=== PATIENT | male | born 1975 | race Caucasian/White ===

== ENCOUNTER 2018-05-29 00:02 | Emergency (ER) | payer OTHER ==
[2018-05-29 00:13] VITALS: BP 142/90; RESP 18; TEMP 98.1
--- NOTE | 2018-05-29 02:03 | ED PDOC ---
HPI: Chest Pain Time Seen by Provider: 05/29/18 00:57 Chief Complaint (Nursing): Chest Pain Chief Complaint (Provider): Chest Pain History Per: Patient History/Exam Limitations: no limitations Onset/Duration Of Symptoms: Days (x1) Current Symptoms Are (Timing): Still Present Pain Scale Rating Of: 7 Quality: "Pain" Associated Symptoms: denies: Nausea, Diaphoresis, Other (vommiting ) Additional History Per: Patient Additional Complaint(s): 43 y/o male presents to the ED with chest pain onset one day ago. Patient saw his PMD for a routine check up. His EKG was abnormal and he was told that he should have an echo done. Patient is accustomed to chest pain episodes from 2-4 times a week due to stress. One episode occurred this evening that was worse than his usual episodes, prompting ED visit. The pain was alleviated by meditation for a short time, but then it returned. Otherwise, patient denies nausea, vomiting, and diaphoresis. PMD: Xu Marcos Past Medical History Reviewed: Historical Data, Nursing Documentation, Vital Signs Vital Signs: Last Vital Signs Temp 98.1 F 05/29/18 00:10 Pulse 108 H 05/29/18 00:10 Resp 18 05/29/18 00:10 BP 142/90 05/29/18 00:10 Pulse Ox 100 05/29/18 00:10 MORAIMA Report Viewed: Yes - Medical History PMH: No Chronic Diseases - Surgical History Surgical History: No Surg Hx - Family History Family History: States: Unknown Family Hx - Social History Current smoker - smoking cessation education provided: No Alcohol: None Drugs: Denies - Allergies Allergies/Adverse Reactions: Allergies Allergy/AdvReac Type Severity Reaction Status Date / Time No Known Allergies Allergy Verified 05/29/18 00:14 Review of Systems ROS Statement: Except As Marked, All Systems Reviewed And Found Negative Constitutional: Negative for: Sweats Cardiovascular: Positive for: Chest Pain (intermittent) Gastrointestinal: Negative for: Nausea, Vomiting Physical Exam - Reviewed Nursing Documentation Reviewed: Yes Vital Signs Reviewed: Yes - Physical Exam Appears: Positive for: Well, No Acute Distress Head Exam: Positive for: ATRAUMATIC, NORMAL INSPECTION, NORMOCEPHALIC Skin: Positive for: Normal Color, Warm, Dry. Negative for: Diaphoresis Eye Exam: Positive for: EOMI, Normal appearance, PERRL Neck: Positive for: Normal, Painless ROM, Supple Cardiovascular/Chest: Positive for: Regular Rate, Rhythm. Negative for: Murmur Respiratory: Positive for: Normal Breath Sounds. Negative for: Wheezing Gastrointestinal/Abdominal: Positive for: Normal Exam, Soft. Negative for: Tenderness Extremity: Positive for: Normal ROM (x4). Negative for: Deformity Neurologic/Psych: Positive for: Alert, Oriented (x3), Mood/Affect (anxious) - Laboratory Results Result Diagrams: 05/29/18 01:48 05/29/18 01:48 - ECG O2 Sat by Pulse Oximetry: 100 (RA) Pulse Ox Interpretation: Normal Medical Decision Making Medical Decision Making: Time: 1:50 Inital Impression: 43 y/o male with chest pain Intial Plan: Time: 00:13 -EKG Stat Time: 01:15 -CMP -CBC w differential -Drug Screen Urine Stat -Troponin Time: 2:56 - Labs reviewed and revealed no clinically significant abnormalities. CXR shows no active disease. Diagnoses are atypical chest pain and anxiety. Scribe Attestation: Documented by Mala Ward, acting as a scribe for Tigre Stewart. Provider Scribe Attestation: All medical record entries made by the Scribe were at my direction and personally dictated by me. I have reviewed the chart and agree that the record accurately reflects my personal performance of the history, physical exam, medical decision making, and the department course for this patient. I have also personally directed, reviewed, and agree with the discharge instructions and disposition. Disposition - Clinical Impression Clinical Impression: Atypical chest pain, Anxiety - Patient ED Disposition Is Patient to be Admitted: No - Disposition Disposition: Routine/Home Disposition Time: 02:56 Condition: STABLE Instructions: Chest Pain That Is Not Caused by the Heart (DC), Anxiety, Adult (DC) Forms: [employer] ([employer])
[2018-05-29 02:17] LABS: BASO % 0.5 % (0.0-2.0); EOS # 0.2 K/uL (0.0-0.7); EOS % 1.9 % (0.0-4.0); HEMOGLOBIN 13.9 g/dL (12.0-18.0); LYMPH # 2.3 K/uL (1.0-4.3); LYMPH % 29.6 % (20.0-40.0); MEAN CELL VOLUME 72.8 fl (80.0-94.0); MEAN CORPUSCULAR HEMOGLOBIN 23.2 pg (27.0-31.0); MEAN CORPUSCULAR HGB CONC 31.9 g/dL (33.0-37.0); MEAN PLATELET VOLUME 7.5 fl (7.2-11.7); MONO # 0.8 K/uL (0.0-0.8); MONO % 10.7 % (0.0-10.0); NEUT # 4.5 K/uL (1.8-7.0); NEUT % 57.3 % (50.0-75.0); NRBC % 0.1 % (0.0-0.0); RBC 5.99 Mil/uL (4.40-5.90); RED CELL DISTRIBUTION WIDTH 14.6 % (11.5-14.5); WHITE BLOOD COUNT 7.8 K/uL (4.8-10.8)
[2018-05-29 02:26] LABS: ALB/GLOB RATIO 1.4 (1.0-2.1); ALBUMIN 4.7 g/dL (3.5-5.0); ALT/SGPT 28 U/L (21-72); AST/SGOT 24 U/L (17-59); BLOOD UREA NITROGEN 15 mg/dl (9-20); CALCIUM 9.8 mg/dL (8.4-10.2); GFR NON-AFRICAN AMERICAN > 60
[2018-05-29 06:24] VITALS: PULSE 75; O2SAT 99
--- NOTE | 2018-05-29 06:39 | CARD ---
APPROVED REPORT Date of service: 05/29/2018 EKG Measurement Heart [id number] <Conclusion> Normal sinus rhythm Normal Electrocardiogram
--- NOTE | 2018-05-29 07:48 | RAD ---
Date of service: 05/29/2018 HISTORY: chest pain COMPARISON: No prior. TECHNIQUE: Chest PA and lateral FINDINGS: LUNGS: No active pulmonary disease. PLEURA: No significant pleural effusion identified. No pneumothorax apparent. CARDIOVASCULAR: No aortic atherosclerotic calcification present. Normal cardiac size. No pulmonary vascular congestion. OSSEOUS STRUCTURES: No significant abnormalities. VISUALIZED UPPER ABDOMEN: Normal. OTHER FINDINGS: None. IMPRESSION: No active disease.
== END 2018-05-29 02:56 | disposition home or self-care (01) ==
LOC: H.ER 00:02
DX: R07.89 Other chest pain (principal); F41.9 Anxiety disorder, unspecified